=== PATIENT | female | born 1985 | race Caucasian/White ===

== ENCOUNTER 2017-07-22 14:08 | Inpatient (IN) | payer OTHER ==
--- NOTE | 2017-07-22 14:18 | ER Document Report ---
ED General - General Stated Complaint: POSSIBLE SEIZURE Time Seen by Provider: 07/22/17 14:18 Mode of Arrival: Medic Information source: Patient, Parent - HPI Notes: 31-year-old female with a past medical history of chronic alcoholism presents to the emergency room via EMS for seizure that she had at home, witnessed by mother. Patient was sitting in chair, had had a minute long seizure with about 30 minutes being post-ictal. Patient has been seen several times in any of the hospital for detox. Patient drank about 8 next drinks yesterday due to increased stress and she is recently from her and 2 children due to alcoholism. Mother states she is trying a more "homeopathic approach" to detoxing by doing mental cognition and a slow tapering of alcohol over the course of 9 weeks. Patient denies any illicit drug use. Patient has been battling alcoholism for the last 3 years. Presently 1 week ago patient became "blackout drunk" and fell down stairs but she is not sure exactly. Has bruises on her face. Did not get checked out by a medical facility for these injuries. Mother states that patient has not been eating a normal diet due to excessive drinking patient states she does have some paresthesias to her bilateral lower extremities that she has noticed over the last 2 weeks. Patient has been seen at [facility] for all of her detox hospital encounters. Denies any fevers or chills, chest pain,palpitations, shortness of breath, dyspnea, nausea, vomiting, diarrhea, abdominal pain, hematuria,blurred vision, double vision, loss of vision, speech changes, LH, dizziness, syncope, headaches, wheezing, ST , URI, neck pain, weakness, bowel or bladder dysfunction, saddle anesthesia, numbness or tingling in bilateral upper or lower extremities equally, muscle paralysis, weakness in bilateral upper or lower extremities equally or rash. Denies IV drug use. - Related Data Allergies/Adverse Reactions: No Known Allergies Allergy (Verified 07/22/17 16:49) Past Medical History - General Information source: Patient, Parent - Social History Smoking Status: Current Every Day Smoker Frequency of alcohol use: Heavy Family History: Reviewed & Not Pertinent Review of Systems - Review of Systems Constitutional: See HPI EENT: No symptoms reported Cardiovascular: No symptoms reported Respiratory: No symptoms reported Gastrointestinal: No symptoms reported Genitourinary: No symptoms reported Female Genitourinary: No symptoms reported Musculoskeletal: No symptoms reported Skin: No symptoms reported Hematologic/Lymphatic: No symptoms reported Neurological/Psychological: See HPI Physical Exam - Notes Notes: PHYSICAL EXAMINATION: GENERAL: Well-appearing, well-nourished and in no acute distress. HEAD: Atraumatic, normocephalic. various stages of healing ecchymosis around the right orbital. EYES: Pupils equal round and reactive to light, extraocular movements intact, conjunctiva are normal. ENT: Nares patent, oropharynx clear without exudates. Moist mucous membranes. NECK: Normal range of motion, supple without lymphadenopathy LUNGS: Breath sounds clear to auscultation bilaterally and equal. No wheezes rales or rhonchi. HEART: Regular rate and rhythm without murmurs ABDOMEN: Soft, nontender, nondistended abdomen. No guarding, no rebound. No masses appreciated. Female : deferred Musculoskeletal: Normal range of motion, no pitting or edema. No cyanosis. NEUROLOGICAL: Cranial nerves grossly intact. Normal speech, normal gait. Normal sensory, motor exams PSYCH: Normal mood, normal affect. SKIN: Warm, Dry, normal turgor, no rashes or lesions noted. Course - Re-evaluation Re-evalutation: 07/22/17 14:52 31-year-old female who is afebrile, vitals stable and in no distress presents for evaluation of having a seizure that lasted for about 1 minute approximately 45 minutes ago. Patient and mother are working together to try a homeopathic approach to detox from alcohol through a 9 week tapering of her alcohol abuse. Mother states she forgot to give her alcohol today which caused her seizure. Patient is typically seen at [facility] for her detox. Patient did leave AGAINST MEDICAL ADVICE approximately 2 weeks ago because she did not want to "stay there anymore". Patient also has been taking Chantix to try and quit smoking, she has not been successful in this. Patient did drink about 8 cans of "[place] and "Gunner's hard lemonade" which she typically is only drinking 2 cans away. Patient states she found out that her likely does not want a reunite as they are right now and she has 2 small children that stay with her . Patient was postictal for approximately 30 minutes after initial seizure at mother's house. She was sitting in a recliner, was witnessed by mother and she did not injure herself. pt with tonic clonic seizure at 1445, lasted 45 seconds, 2 mg of ativan given, witnessed by this provider. CBC negative for leukocytosis or anemia, renal dysfunction, mag 1.1, mag riders given, potassium of 3.1, potassium riders given. Elevated AST and ALT this is likely due to chronic alcoholism however we will check hepatitis panel. CT head, facial bones negative for any acute findings. Chest x-ray negative for any acute findings. EKG for any acute STEMI. CHARLEEN Gallo, consulted regarding pertinent findings, will admit patient for withdrawal as well as grand mal seizures from withdrawing to medical floor with telemetry. - Laboratory Result Diagrams: 07/22/17 13:22 07/22/17 13:22 Laboratory results interpreted by me: 07/22/17 07/22/17 07/22/17 13:22 13:22 13:22 WBC 3.6 L Hct 35.6 L RDW 14.8 H Plt Count 77 L Sodium 132.8 L Potassium 3.1 L Chloride 89 L Creatinine 0.46 L Magnesium 1.1 L* AST 188 H ALT 87 H Creatine Kinase 1255 H CK-MB (CK-2) Urine Protein Urine Blood Urine Nitrite Urine Urobilinogen Ur Leukocyte Esterase 07/22/17 07/22/17 13:22 15:50 WBC Hct RDW Plt Count Sodium Potassium Chloride Creatinine Magnesium AST ALT Creatine Kinase CK-MB (CK-2) 4.87 H Urine Protein 30 H Urine Blood SMALL H Urine Nitrite POSITIVE H Urine Urobilinogen 4.0 H Ur Leukocyte Esterase LARGE H - EKG Interpretation by Me EKG shows normal: Sinus rhythm Rate: Normal - hr 98 Rhythm: NSR When compared to previous EKG there are: Previous EKG unavailable - Nonspecific ST segment elevations, Other Discharge - Discharge Clinical Impression: Grand mal seizure, Hypomagnesemia, Hypokalemia Withdrawal symptoms, alcohol Qualifiers: Complication of substance-induced condition: with unspecified complication Qualified Code(s): F10.239 - Alcohol dependence with withdrawal, unspecified Condition: Good Disposition: ADMITTED INPATIENT Admitting Provider: Hospitalist - Katelyn Abdullahi Unit Admitted: Telemetry
[2017-07-22 14:31] LABS: ABSOLUTE LYMPHOCYTES (AUTO) 0.7 10^3/uL (0.5-4.7); ABSOLUTE MONOCYTES (AUTO) 0.3 10^3/uL (0.1-1.4); ABSOLUTE NEUT (AUTO) 2.6 10^3/uL (1.7-8.2); BASOPHILS % (AUTO) 0.8 % (0-2); EOSINOPHILS % (AUTO) 1.3 % (0-6); HEMATOCRIT 35.6 % (36.0-47.0); HEMOGLOBIN 12.3 g/dL (12.0-15.5); LYMPHOCYTES % (AUTO) 18.5 % (13-45); MEAN CORPUSCULAR HEMOGLOBIN 32.3 pg (27.0-33.4); MEAN CORPUSCULAR HGB CONC 34.6 g/dL (32.0-36.0); MEAN CORPUSCULAR VOLUME 94 fl (80-97); MONOCYTES % (AUTO) 7.3 % (3-13); RED BLOOD COUNT 3.81 10^6/uL (3.72-5.28); RED CELL DISTRIBUTION WIDTH 14.8 % (11.5-14.0); SEGMENTED NEUTROPHILS % (AUTO) 72.1 % (42-78); TOTAL CELLS COUNTED % (AUTO) 100 %; WHITE BLOOD COUNT 3.6 10^3/uL (4.0-10.5)
[2017-07-22] MEDS ORDERED: LORAZEPAM INJ 2 MG/1 ML VIAL ONE (14:44)
[2017-07-22] MEDS ORDERED: LORAZEPAM INJ 2 MG/1 ML VIAL IV ONE (14:50)
[2017-07-22] MEDS ORDERED: THIAMINE HCL 100 MG, FOLIC ACID 1 MG in NORMAL SALINE 250 ML IV ONE (14:51)
[2017-07-22] MEDS ORDERED: NORMAL SALINE 1000 ML 1,000 ML IV PRN (14:51)
[2017-07-22 15:08] LABS: ALANINE AMINOTRANSFERASE 87 U/L (9-52); ALBUMIN 4.2 g/dL (3.5-5.0); ALKALINE PHOSPHATASE 87 U/L (38-126); ANION GAP 18 (5-19); ASPARTATE AMINO TRANSFERASE 188 U/L (14-36); BILIRUBIN,DIRECT 0.4 mg/dL (0.0-0.4); BILIRUBIN,TOTAL 0.8 mg/dL (0.2-1.3); BLOOD UREA NITROGEN 7 mg/dL (7-20); CALCIUM 9.4 mg/dL (8.4-10.2); CARBON DIOXIDE 26 mmol/L (22-30); CHLORIDE 89 mmol/L (98-107); GLUCOSE 80 mg/dL (75-110); POTASSIUM 3.1 mmol/L (3.6-5.0); SODIUM 132.8 mmol/L (137-145)
[2017-07-22 15:12] LABS: PLATELET COUNT 77 10^3/uL (150-450)
[2017-07-22 15:16] LABS: ALCOHOL < 10 mg/dL (NONE DETECTED)
[2017-07-22 15:33] LABS: CREATINE KINASE MB 4.87 ng/mL (<4.55)
[2017-07-22 15:37] LABS: TROPONIN I < 0.012 ng/mL
[2017-07-22] MEDS ORDERED: LEVETIRACETAM 1500 MG/NACL-ISO 1,500 MG/100 ML RTUPB IV ONE (15:50)
[2017-07-22 16:24] LABS: AMORPHOUS SEDIMENT,URINE TRACE /HPF; APPEARANCE,URINE CLOUDY; BILIRUBIN,URINE NEGATIVE (NEGATIVE); COLOR,URINE AMBER; GLUCOSE, URINE NEGATIVE (NEGATIVE); KETONES,URINE NEGATIVE (NEGATIVE); LEUKOCYTE ESTERASE,URINE LARGE (NEGATIVE); NITRITE,URINE POSITIVE (NEGATIVE); PROTEIN,URINE 30 mg/dL (NEGATIVE); URINE SPECIFIC GRAVITY 1.012
--- NOTE | 2017-07-22 16:27 | RADIOLOGY REPORT (SQ) ---
EXAM DESCRIPTION: CT HEAD WITHOUT COMPLETED DATE/TIME: 07/22/2017 4:09 pm REASON FOR STUDY: seizures, head trauma x 1 week ago COMPARISON: None. TECHNIQUE: Axial images acquired through the brain without intravenous contrast. Images reviewed wi th bone, brain and subdural windows. Additional sagittal and coronal reconstructions were generated. Images stored on PACS. All CT scanners at this facility use dose modulation, iterative reconstruction, and/or weight based d osing when appropriate to reduce radiation dose to as low as reasonably achievable (ALARA). [facility]: Dose Right [facility]: CareDose [facility]: Dose Right [facility]: Teradose 4D [facility]: Smart MobilePro RADIATION DOSE: CT Rad equipment meets quality standard of care and radiation dose reduction techniq ues were employed. CTDIvol: 53.2 mGy. DLP: 1017 mGy-cm. mGy. LIMITATIONS: None. FINDINGS: VENTRICLES: Normal size and contour. CEREBRUM: No masses. No hemorrhage. No midline shift. No evidence for acute infarction. Normal gra y/white matter differentiation. No areas of low density in the white matter. CEREBELLUM: No masses. No hemorrhage. No alteration of density. No evidence for acute infarction. EXTRAAXIAL SPACES: No fluid collections. No masses. ORBITS AND GLOBE: No intra- or extraconal masses. Normal contour of globe without masses. CALVARIUM: No fracture. PARANASAL SINUSES: No fluid or mucosal thickening. SOFT TISSUES: No mass or hematoma. OTHER: No other significant finding. IMPRESSION: NORMAL BRAIN CT WITHOUT CONTRAST. EVIDENCE OF ACUTE STROKE: NO. COMMENT: Quality ID # 436: Final reports with documentation of one or more dose reduction techniques (e.g., Automated exposure control, adjustment of the mA and/or kV according to patient size, use of iterative reconstruction technique) TECHNICAL DOCUMENTATION: JOB ID: [id number] [employer]- All Rights Reserved Reading location - IP/workstation name: [email or web address]
--- NOTE | 2017-07-22 16:33 | RADIOLOGY REPORT (SQ) ---
EXAM DESCRIPTION: CHEST SINGLE VIEW COMPLETED DATE/TIME: 07/22/2017 4:13 pm REASON FOR STUDY: seizures COMPARISON: None. EXAM PARAMETERS: NUMBER OF VIEWS: One view. TECHNIQUE: Single frontal radiographic view of the chest acquired. RADIATION DOSE: NA LIMITATIONS: None. FINDINGS: LUNGS AND PLEURA: No opacities, masses or pneumothorax. No pleural effusion. MEDIASTINUM AND HILAR STRUCTURES: No masses. Contour normal. HEART AND VASCULAR STRUCTURES: Heart normal in size. Normal vasculature. BONES: No acute findings. HARDWARE: None in the chest. OTHER: No other significant finding. IMPRESSION: NO ACUTE RADIOGRAPHIC FINDING IN THE CHEST. TECHNICAL DOCUMENTATION: JOB ID: [id number] [employer]- All Rights Reserved Reading location - IP/workstation name: [email or web address]
[2017-07-22 16:37] LABS: URINE AMPHETAMINES SCREEN NEGATIVE; URINE BARBITURATES SCREEN NEGATIVE; URINE BENZODIAZEPINES SCREEN UNCONFIRMED POSITIVE; URINE COCAINE SCREEN NEGATIVE; URINE MARIJUANA (THC) SCREEN NEGATIVE; URINE METHADONE SCREEN NEGATIVE; URINE PHENCYCLIDINE SCREEN NEGATIVE
--- NOTE | 2017-07-22 16:40 | RADIOLOGY REPORT (SQ) ---
EXAM DESCRIPTION: CT FACIAL AREA WITHOUT COMPLETED DATE/TIME: 07/22/2017 4:09 pm REASON FOR STUDY: fell when drunk x 1 week ago, multiple seizures COMPARISON: None. TECHNIQUE: Noncontrasted images through the facial bones and orbits windowed for bone and soft tissu e. Additional coronal and sagittal reconstructed images reviewed. All images stored on PACS. All CT scanners at this facility use dose modulation, iterative reconstruction, and/or weight based d osing when appropriate to reduce radiation dose to as low as reasonably achievable (ALARA). [facility]: Dose Right [facility]: CareDose [facility]: Dose Right [facility]: Teradose 4D [facility]: Smart Technologies RADIATION DOSE: CT Rad equipment meets quality standard of care and radiation dose reduction techniq ues were employed. CTDIvol: 30.4 mGy. DLP: 540 mGy-cm. mGy. LIMITATIONS: None. FINDINGS: FACIAL BONES: No fracture or bone lesion. ORBITS: Intact. No fracture. Symmetric intact globes and retroorbital soft tissues. PARANASAL SINUSES: Clear. No significant mucosal thickening, mass or fluid. No nasal polyps. Maxill rajwinder sinus outlets are patent. SOFT TISSUES: No mass or edema. INFERIOR BRAIN: Limited view. No acute findings. OTHER: No other significant finding. IMPRESSION: NO ACUTE FINDINGS. TECHNICAL DOCUMENTATION: JOB ID: [id number] Quality ID # [id number]: Final reports with documentation of one or more dose reduction techniques (e.g., Au tomated exposure control, adjustment of the mA and/or kV according to patient size, use of iterative reconstruction technique) 2010 [employer]- All Rights Reserved Reading location - IP/workstation name: [email or web address]
[2017-07-22] MEDS: MAGNESIUM SULFATE/D5W 1 GM/100 ML RTUPB IV SCH ×2 (17:08→22:31)
[2017-07-22] MEDS ORDERED: ONDANSETRON HCL INJ/PF 4 MG/2 ML SDV IV PRN (17:23)
[2017-07-22] MEDS ORDERED: ONDANSETRON 4 MG TAB.RAPDIS PO PRN (17:23)
--- NOTE | 2017-07-22 17:54 | PDOC H&P ---
History of Present Illness Admission Date/PCP: 07/22/17 16:57 Primary CARE physician: Clary singleton [facility] History of Present Illness: NADINE GEORGE is a 31 year old female who presented to the emergency room after having a seizure at home. She has a past medical history significant for alcohol abuse. She has tried to stop drinking before but always goes through alcohol withdrawal. She has never been completely detoxed. She was hospitalized last week at [facility] and was started on an alcohol protocol with Librium. She checked herself out of the hospital AMA 2 days later. The patient is enrolled in an outpatient program that slowly weaned to off of alcohol over a 12 week. She is at week 3 of the program and still is allowed to drink. She states that yesterday she drank quite heavily and was still drunk this morning when she got up. When she began to sober up she suffered a seizure and was brought to the emergency room for further evaluation. Upon arrival in the urgency room she had 2 additional seizures. She has been loaded with Keppra and has received IV Ativan. Past Medical History Cardiac Medical History: Reports: None Pulmonary Medical History: Reports: None EENT Medical History: Reports: None Neurological Medical History: Reports: None Endocrine Medical History: Reports: None Renal/ Medical History: Reports: None Malignancy Medical History: Reports: None GI Medical History: Reports: None Musculoskeltal Medical History: Reports: None Skin Medical History: Reports: None Psychiatric Medical History: Reports: Alcohol Dependency, Depression, Tobacco Dependency Traumatic Medical History: Reports: None Hematology: Reports: None Infectious Medical History: Reports: None Past Surgical History Past Surgical History: Reports: None Social History Information Source: Patient, Parent Lives with: Parents Smoking Status: Current Every Day Smoker Frequency of Alcohol Use: Heavy Last Alcohol Use: 07/22/17 Hx Recreational Drug Use: No Drugs: None Past Social History Note: The patient has 2 young sons ages 8 and age 4. They do not reside with her. They live with her father. - Advance Directive Resuscitation Status: Full Code Family History Family History: Other - Have a history of alcohol abuse on both sides of her family Parental Family History Reviewed: Yes Children Family History Reviewed: Yes Sibling(s) Family History Reviewed.: Yes Medication/Allergy Allergies/Adverse Reactions: No Known Allergies Allergy (Verified 07/22/17 16:49) Review of Systems Constitutional: PRESENT: headache(s) Eyes: ABSENT: visual disturbances Ears: ABSENT: hearing changes Nose, Mouth, and Throat: PRESENT: headache(s) Cardiovascular: PRESENT: palpitations. ABSENT: chest pain, dyspnea on exertion , edema, orthropnea Respiratory: ABSENT: cough, hemoptysis Gastrointestinal: PRESENT: nausea. ABSENT: abdominal pain, constipation, diarrhea, hematemesis, hematochezia, vomiting Genitourinary: PRESENT: other - Frequently incontinent due to intoxication Musculoskeletal: PRESENT: other - Patient has numbness and tingling in both of her lower extremities as well as a constant aching pain. Her feet have been numb and she reports difficulty walking due to this. Integumentary: PRESENT: other - Multiple ecchymosis over her right eye and multiple bruises all over her body. Neurological: PRESENT: convulsions, frequent falls, lack of coordination, numbness, paresthesias, tremor(s). ABSENT: abnormal movements, abnormal speech , confusion, focal weakness Psychiatric: PRESENT: depression. ABSENT: hallucinations, homidical ideation, suicidal ideation Endocrine: ABSENT: cold intolerance, heat intolerance, polydipsia, polyuria Hematologic/Lymphatic: PRESENT: easy bruising Physical Exam General appearance: PRESENT: cooperative, mild distress, well-developed, well- nourished Head exam: PRESENT: atraumatic, normocephalic Eye exam: PRESENT: conjunctiva pink, EOMI, PERRLA. ABSENT: scleral icterus Ear exam: PRESENT: normal external ear exam Mouth exam: PRESENT: moist, tongue midline Neck exam: ABSENT: carotid bruit, JVD, lymphadenopathy, thyromegaly Respiratory exam: PRESENT: clear to auscultation juan diego. ABSENT: rales, rhonchi, wheezes Cardiovascular exam: PRESENT: tachycardia. ABSENT: diastolic murmur, rubs, systolic murmur Pulses: PRESENT: normal dorsalis pedis pul Vascular exam: PRESENT: normal capillary refill GI/Abdominal exam: PRESENT: normal bowel sounds, soft. ABSENT: distended, guarding, mass, organolmegaly, rebound, tenderness Rectal exam: PRESENT: deferred Extremities exam: PRESENT: tenderness Musculoskeletal exam: PRESENT: tenderness - She is exquisitely tender to palpation in both of her feet, bilateral AND bilateral thighs Neurological exam: PRESENT: alert, awake, oriented to person, oriented to place , oriented to time, oriented to situation, ataxia, CN II-XII grossly intact, other - She has a significant tremor. ABSENT: motor sensory deficit Psychiatric exam: PRESENT: agitated, depressed, flat affect. ABSENT: appropriate affect Skin exam: PRESENT: dry, intact, warm, other - Multiple ecchymosis. ABSENT: cyanosis, rash Results Impressions: Head CT 07/22/17 14:49 IMPRESSION: NORMAL BRAIN CT WITHOUT CONTRAST. EVIDENCE OF ACUTE STROKE: NO. Facial Bones CT 07/22/17 14:50 IMPRESSION: NO ACUTE FINDINGS. Chest X-Ray 07/22/17 15:57 IMPRESSION: NO ACUTE RADIOGRAPHIC FINDING IN THE CHEST. Assessment & Plan - Diagnosis (1) Seizure due to alcohol withdrawal Is this a current diagnosis for this admission?: Yes Plan: The patient has had a total of 3 seizures. These have resolved after being loaded with Keppra and receiving 2 doses of IV Ativan. Going to place her on 2 mg of IV Ativan every 4 hours. She will have 2 mg of Ativan available as needed every 2 hours as needed as well. We will place her on seizure precautions and an intermediate level of care and treat her underlying alcohol withdrawal. (2) Alcohol withdrawal Is this a current diagnosis for this admission?: Yes Plan: Continue benzodiazepines as outlined above. I am also going to place her on clonidine. (3) Alcohol abuse, continuous Is this a current diagnosis for this admission?: Yes Plan: The patient has been involved in an alcohol rehab program but is been trying to wean herself off slowly over 12 week. Due to the fact that she is still drinking and only went 3 hours without drinking before she had a seizure I do not believe that she is going to be able to slowly wean herself off alcohol in the home setting. I have discussed this at length with her and her mother. She is quite honest that she would like to quit drinking when she gets out of here but she does not want to have further seizures and is agreeable to stay for now. (4) Urinary tract infection Is this a current diagnosis for this admission?: Yes Plan: We will order a urine culture. She will receive IV Rocephin 1 g daily until culture results are finalized (5) Hyponatremia Is this a current diagnosis for this admission?: Yes Plan: Likely due to her underlying alcohol use. She will have a chemistry panel drawn in the morning (6) Hypokalemia Is this a current diagnosis for this admission?: Yes Plan: She is receiving potassium riders. She will continue IV fluids with potassium as well. We will check a level in the morning. (7) Hypomagnesemia Is this a current diagnosis for this admission?: Yes Plan: This will be repleted today. She will have another level checked in the morning. (8) Elevated transaminase level Is this a current diagnosis for this admission?: Yes Plan: We will obtain an ultrasound of the liver for further evaluation. This is likely due to mild alcoholic hepatitis. (9) Rhabdomyolysis Is this a current diagnosis for this admission?: Yes Plan: She will be started on IV fluid hydration. She will have a CK level drawn in the morning (11) Depression Is this a current diagnosis for this admission?: Yes Plan: When she goes to her underlying alcohol withdrawal this will need to be treated. (12) Tobacco abuse Is this a current diagnosis for this admission?: Yes Plan: She will have a nicotine patch in place. (13) Full code status Is this a current diagnosis for this admission?: Yes - Time Time Spent: 50 to 70 Minutes - Inpatient Certification Medical Necessity: Need Close Monitoring Due to Risk of Patient Decompensation, Need For IV Fluids, Need for Neurological Checks, Need for IV Antibiotics, Risk of Complication if Not Cared For in Hospital, Other - The patient will be admitted to the hospital. I fully expect her hospitalization will span greater than 2 midnights. The patient had 3 seizures after only being off of alcohol for 2 or 3 hours this morning. She needs parenteral benzodiazepines, fluids and antibiotics. I expect she will be in the hospital for several days.
[2017-07-22] MEDS ORDERED: CEFTRIAXONE 1 GM/D5W RTU 50 ML IV SCH (18:00)
[2017-07-22 18:06] LABS: PROTHROMBIN TIME 13.7 SEC (11.4-15.4)
[2017-07-22 18:07] LABS: PARTIAL THROMBOPLASTIN TIME 25.5 SEC (23.5-35.8)
[2017-07-22] MEDS: POTASSI CL 20 MEQ/50 ML RIDER 20 MEQ/50 ML RTUPB IV SCH ×2 (18:11→19:44)
[2017-07-22] MEDS: LORAZEPAM INJ 2 MG/1 ML VIAL IV SCH (18:32)
--- NOTE | 2017-07-22 18:58 | RADIOLOGY REPORT (SQ) ---
EXAM DESCRIPTION: VENOUS BILATERAL LOWER COMPLETED DATE/TIME: 07/22/2017 6:50 pm REASON FOR STUDY: leg pain COMPARISON: None. TECHNIQUE: Dynamic and static barfield scale and color images acquired of both lower extremity venous sy stems. Selected spectral images acquired with additional compression and augmentation maneuvers. Imag es stored on PACS. LIMITATIONS: None. FINDINGS: RIGHT LEG COMMON FEMORAL AND FEMORAL: Normal phasicity, compression and augmentation. No visualized echogenic m aterial on barfield scale. No defects on color images. POPLITEAL: Normal compression and augmentation. No visualized echogenic material on barfield scale. No de fects on color images. CALF VESSELS: Normal compression and augmentation. No visualized echogenic material on barfield scale. No defects on color image. GSV AND SSV: Normal compression. No visualized echogenic material on barfield scale. No defects on color images. ANY DEEP VENOUS INSUFFICIENCY: Not evaluated. ANY EVIDENCE OF POPLITEAL CYST: No. OTHER: No other significant finding. LEFT LEG COMMON FEMORAL AND FEMORAL: Normal phasicity, compression and augmentation. No visualized echogenic m aterial on barfield scale. No defects on color images. POPLITEAL: Normal compression and augmentation. No visualized echogenic material on barfield scale. No de fects on color images. CALF VESSELS: Normal compression and augmentation. No visualized echogenic material on barfield scale. No defects on color images. GSV AND SSV: Normal compression. No visualized echogenic material on barfield scale. No defects on color images. ANY DEEP VENOUS INSUFFICIENCY: Not evaluated. ANY EVIDENCE POPLITEAL CYST: No. OTHER: No other significant finding. IMPRESSION: NO EVIDENCE DVT OR SVT IN EITHER LEG. TECHNICAL DOCUMENTATION: JOB ID: [id number] [employer]- All Rights Reserved Reading location - IP/workstation name: [email or web address]
[2017-07-22] MEDS ORDERED: NICOTINE 21 MG/24 HR PATCH.TD24 TD ONE (19:00)
--- NOTE | 2017-07-22 20:38 | EKG REPORT ---
SEVERITY:- NORMAL ECG - SINUS RHYTHM : Confirmed by: Tino Jama MD 22-Jul-2017 20:37:28
[2017-07-22] MEDS: LORAZEPAM INJ 2 MG/1 ML VIAL IV PRN ×2 (22:30→22:37)
[2017-07-22] MEDS: POTASSI CL 20 MEQ/NS 1L 1,000 ML IV PRN (22:33)
[2017-07-22] MEDS ORDERED: CEFTRIAXONE SODIUM 1,000 MG in DEXTROSE 5%-WATER 50 ML IV ONE (23:45)
[2017-07-23] MEDS: LORAZEPAM INJ 2 MG/1 ML VIAL IV PRN (00:16)
[2017-07-23] MEDS: LORAZEPAM INJ 2 MG/1 ML VIAL IV SCH ×4 (00:16→18:02)
[2017-07-23] MEDS ORDERED: LORAZEPAM INJ 2 MG/1 ML VIAL IV PRN (00:30)
[2017-07-23] MEDS: MAGNESIUM SULFATE/D5W 1 GM/100 ML RTUPB IV SCH ×2 (03:49→10:50)
[2017-07-23] MEDS: LANSOPRAZOLE 15 MG TAB.RAP.DR PO SCH (05:46)
[2017-07-23 06:53] LABS: PROTHROMBIN TIME 13.7 SEC (11.4-15.4)
[2017-07-23 07:13] LABS: ABSOLUTE EOSINOPHILS # (AUTO) 0.1 10^3/uL (0.0-0.6); ABSOLUTE LYMPHOCYTES (AUTO) 0.8 10^3/uL (0.5-4.7); ABSOLUTE MONOCYTES (AUTO) 0.3 10^3/uL (0.1-1.4); ABSOLUTE NEUT (AUTO) 2.4 10^3/uL (1.7-8.2); BASOPHILS % (AUTO) 0.8 % (0-2); EOSINOPHILS % (AUTO) 2.8 % (0-6); HEMOGLOBIN 11.7 g/dL (12.0-15.5); LYMPHOCYTES % (AUTO) 21.1 % (13-45); MEAN CORPUSCULAR HEMOGLOBIN 32.2 pg (27.0-33.4); MEAN CORPUSCULAR HGB CONC 34.4 g/dL (32.0-36.0); MEAN CORPUSCULAR VOLUME 94 fl (80-97); MONOCYTES % (AUTO) 9.6 % (3-13); RED BLOOD COUNT 3.63 10^6/uL (3.72-5.28); RED CELL DISTRIBUTION WIDTH 14.3 % (11.5-14.0); SEGMENTED NEUTROPHILS % (AUTO) 65.7 % (42-78); TOTAL CELLS COUNTED % (AUTO) 100 %; WHITE BLOOD COUNT 3.6 10^3/uL (4.0-10.5)
[2017-07-23 07:18] LABS: ALANINE AMINOTRANSFERASE 76 U/L (9-52); ALBUMIN 3.4 g/dL (3.5-5.0); ALKALINE PHOSPHATASE 84 U/L (38-126); ANION GAP 9 (5-19); ASPARTATE AMINO TRANSFERASE 142 U/L (14-36); BILIRUBIN,DIRECT 0.3 mg/dL (0.0-0.4); BILIRUBIN,TOTAL 0.9 mg/dL (0.2-1.3); BLOOD UREA NITROGEN 5 mg/dL (7-20); CALCIUM 8.6 mg/dL (8.4-10.2); CARBON DIOXIDE 23 mmol/L (22-30); CHLORIDE 104 mmol/L (98-107); CREATINE KINASE 765 U/L (30-135); GLUCOSE 89 mg/dL (75-110); PHOSPHORUS 2.8 mg/dL (2.5-4.5); POTASSIUM 3.5 mmol/L (3.6-5.0); SODIUM 135.8 mmol/L (137-145); TOTAL PROTEIN 6.2 g/dL (6.3-8.2)
--- NOTE | 2017-07-23 07:25 | RADIOLOGY REPORT (SQ) ---
EXAM DESCRIPTION: US ABDOMEN LIMITED CLINICAL HISTORY: 31 years Female, elevated LFT Comparison: None. LIMITATIONS: None. FINDINGS: Gallbladder sludge, negative sonographic Gates's test, mild nonspecific heterogeneous hepatic echotexture, a 0.2-cm diameter common bile duct, no intrahepatic ductal dilation, 11-cm right kidney, pancreas, visualized vasculature/abdominal aorta, and no significant ascites appear otherwise unremarkable. IMPRESSION: No acute findings. Gallbladder sludge.
[2017-07-23 08:02] LABS: PLATELET COUNT 50 10^3/uL (150-450)
[2017-07-23 08:42] LABS: HEPATITIS A AB IGM Negative (Negative); HEPATITIS B CORE AB IGM Negative (Negative); HEPATITS B SURFACE ANTIGEN Negative (Negative)
[2017-07-23] MEDS: NICOTINE 21 MG/24 HR PATCH.TD24 TD SCH (10:50)
[2017-07-23 11:31] LABS: HEPATITIS C VIRUS ANTIBODY <0.1 s/co ratio (0.0-0.9)
[2017-07-23] MEDS: POTASSI CL 20 MEQ/NS 1L 1,000 ML IV PRN (12:00)
--- NOTE | 2017-07-23 18:44 | PDOC PROGRESS REPORT ---
Subjective Progress Note for:: 07/23/17 Subjective:: She does not have much of a tremor. We discussed cutting back her lorazepam and she is in agreement. She has made a firm decision to try to quit drinking altogether she was commended for this. I did spend quite some time discussing the plan of care with her and all of her questions were answered. Overall she denies fever chills. No chest pain or heart palpitations. She has had no nausea today. She states her tremor is better. No abdominal pain. No urinary complaints. She still is having pain in both of her lower extremities however this is improved since yesterday. Reason For Visit: ALCOHOLIC SEIZURES Physical Exam Vital Signs: Temp Pulse Resp BP Pulse Ox 98.1 F 90 18 114/78 100 07/23/17 16:16 07/23/17 16:16 07/23/17 16:16 07/23/17 16:16 07/23/17 16:16 Intake & Output 07/22/17 07/23/17 07/24/17 06:59 06:59 06:59 Intake Total 1999 3854 Balance 1999 3854 Weight 53.5 kg General appearance: PRESENT: no acute distress, well-developed, well-nourished, other - Multiple ecchymosis over body. Head exam: PRESENT: normocephalic, other - Ecchymosis over is improving Eye exam: PRESENT: other - Ecchymosis of her eyes improving Ear exam: PRESENT: normal external ear exam Mouth exam: PRESENT: moist, tongue midline Neck exam: ABSENT: carotid bruit, JVD, lymphadenopathy, thyromegaly Respiratory exam: PRESENT: clear to auscultation juan diego. ABSENT: rales, rhonchi, wheezes Cardiovascular exam: PRESENT: RRR. ABSENT: diastolic murmur, rubs, systolic murmur GI/Abdominal exam: PRESENT: normal bowel sounds, soft. ABSENT: distended, guarding, mass, organolmegaly, rebound, tenderness Rectal exam: PRESENT: deferred Extremities exam: PRESENT: full ROM. ABSENT: calf tenderness, clubbing, pedal edema Musculoskeletal exam: PRESENT: ambulatory Neurological exam: PRESENT: alert, awake, oriented to person, oriented to place , oriented to time, oriented to situation, CN II-XII grossly intact. ABSENT: motor sensory deficit Psychiatric exam: PRESENT: appropriate affect, normal mood. ABSENT: homicidal ideation, suicidal ideation Skin exam: PRESENT: dry, intact, warm. ABSENT: cyanosis, rash Results Laboratory Results: 07/23/17 06:24 07/23/17 06:24 07/23/17 07/23/17 07/23/17 06:24 06:24 06:24 WBC 3.6 L RBC 3.63 L Hgb 11.7 L Hct 34.0 L MCV 94 MCH 32.2 MCHC 34.4 RDW 14.3 H Plt Count 50 L Seg Neutrophils % 65.7 Lymphocytes % 21.1 Monocytes % 9.6 Eosinophils % 2.8 Basophils % 0.8 Absolute Neutrophils 2.4 Absolute Lymphocytes 0.8 Absolute Monocytes 0.3 Absolute Eosinophils 0.1 Absolute Basophils 0.0 Sodium 135.8 L Potassium 3.5 L Chloride 104 Carbon Dioxide 23 Anion Gap 9 BUN 5 L Creatinine 0.45 L Est GFR ( Amer) > 60 Est GFR (Non-Af Amer) > 60 Glucose 89 Calcium 8.6 Phosphorus 2.8 Magnesium 2.2 D Total Bilirubin 0.9 AST 142 H ALT 76 H Alkaline Phosphatase 84 Ammonia < 8.7 L Total Protein 6.2 L Albumin 3.4 L TSH 07/23/17 06:24 WBC RBC Hgb Hct MCV MCH MCHC RDW Plt Count Seg Neutrophils % Lymphocytes % Monocytes % Eosinophils % Basophils % Absolute Neutrophils Absolute Lymphocytes Absolute Monocytes Absolute Eosinophils Absolute Basophils Sodium Potassium Chloride Carbon Dioxide Anion Gap BUN Creatinine Est GFR ( Amer) Est GFR (Non-Af Amer) Glucose Calcium Phosphorus Magnesium Total Bilirubin AST ALT Alkaline Phosphatase Ammonia Total Protein Albumin TSH 3.45 07/23/17 06:24 Creatine Kinase 765 H Impressions: Venous Doppler Study 07/22/17 00:00 IMPRESSION: NO EVIDENCE DVT OR SVT IN EITHER LEG. Head CT 07/22/17 14:49 IMPRESSION: NORMAL BRAIN CT WITHOUT CONTRAST. EVIDENCE OF ACUTE STROKE: NO. Facial Bones CT 07/22/17 14:50 IMPRESSION: NO ACUTE FINDINGS. Chest X-Ray 07/22/17 15:57 IMPRESSION: NO ACUTE RADIOGRAPHIC FINDING IN THE CHEST. Abdomen Ultrasound 07/23/17 00:00 IMPRESSION: No acute findings. Gallbladder sludge. Assessment & Plan - Diagnosis (1) Seizure due to alcohol withdrawal Is this a current diagnosis for this admission?: Yes Plan: The patient has had a total of 3 seizures. These have resolved after being loaded with Keppra and receiving 2 doses of IV Ativan. She received scheduled Ativan 2 mg every 6 hours overnight. Her tremor is much improved today. She looks much better and is not feeling agitated. We will change her over to oral schedule Ativan every 8 hours. She will continue to have IV Ativan available. (2) Alcohol withdrawal Is this a current diagnosis for this admission?: Yes Plan: Continue benzodiazepines as outlined above. Continue clonidine. (3) Alcohol abuse, continuous Is this a current diagnosis for this admission?: Yes Plan: The patient has been involved in an alcohol rehab program but is been trying to wean herself off slowly over 12 week. Due to the fact that she is still drinking and only went 3 hours without drinking before she had a seizure I do not believe that she is going to be able to slowly wean herself off alcohol in the home setting. She now seems quite motivated to stop drinking. (4) Urinary tract infection Is this a current diagnosis for this admission?: Yes Plan: She has gram-negative rods growing in her urine. Continue IV Rocephin. This is day #2 of treatment. (5) Hyponatremia Is this a current diagnosis for this admission?: Yes Plan: Likely due to her underlying alcohol use. Improved. (6) Hypokalemia Is this a current diagnosis for this admission?: Yes Plan: She was repleted yesterday. Her level is still somewhat low. We will give her 40 mEq of potassium today. (7) Hypomagnesemia Is this a current diagnosis for this admission?: Yes Plan: This will be repleted today. She will have another level checked in the morning. (8) Elevated transaminase level Is this a current diagnosis for this admission?: Yes Plan: Ultrasound of the liver was unremarkable. She did have some gallbladder sludge. This is likely due to mild alcoholic hepatitis. Liver function test are improving (9) Rhabdomyolysis Is this a current diagnosis for this admission?: Yes Plan: Improving (10) Bilateral lower extremity pain Is this a current diagnosis for this admission?: Yes Plan: We will get an MRI of her lumbar spine (11) Depression Is this a current diagnosis for this admission?: Yes Plan: When she goes to her underlying alcohol withdrawal this will need to be treated. (12) Tobacco abuse Is this a current diagnosis for this admission?: Yes Plan: She will continue nicotine patch (13) Full code status Is this a current diagnosis for this admission?: Yes - Time Time Spent with patient: 25-34 minutes - Inpatient Certification Medical Necessity: Other - Inpatient hospitalization remains necessary. Overall the patient is slowly improving. We are going to change her over to by mouth Ativan today. Timing of disposition will be determined by her clinical course. She would like to detox here in the hospital.
[2017-07-23] MEDS ORDERED: POTASSIUM CHLORIDE 10 MEQ TABLET.SA PO ONE (19:15)
[2017-07-23] MEDS: LORAZEPAM 1 MG TABLET PO SCH (21:48)
[2017-07-23] MEDS: CEFTRIAXONE SODIUM 1,000 MG in DEXTROSE 5%-WATER 50 ML IV SCH (21:49)
[2017-07-24] MEDS: LANSOPRAZOLE 15 MG TAB.RAP.DR PO SCH (05:31)
[2017-07-24] MEDS: LORAZEPAM 1 MG TABLET PO SCH ×2 (05:31→17:27)
[2017-07-24 07:01] LABS: INTERNATIONAL RATION (INR) 0.95; PROTHROMBIN TIME 13.2 SEC (11.4-15.4)
[2017-07-24 07:19] LABS: ABSOLUTE BASOPHILS # (AUTO) 0.1 10^3/uL (0.0-0.2); ABSOLUTE EOSINOPHILS # (AUTO) 0.2 10^3/uL (0.0-0.6); ABSOLUTE LYMPHOCYTES (AUTO) 0.9 10^3/uL (0.5-4.7); ABSOLUTE MONOCYTES (AUTO) 0.4 10^3/uL (0.1-1.4); ABSOLUTE NEUT (AUTO) 3.1 10^3/uL (1.7-8.2); ALANINE AMINOTRANSFERASE 91 U/L (9-52); ALBUMIN 4.2 g/dL (3.5-5.0); ALKALINE PHOSPHATASE 88 U/L (38-126); ANION GAP 12 (5-19); ASPARTATE AMINO TRANSFERASE 159 U/L (14-36); BASOPHILS % (AUTO) 1.1 % (0-2); BILIRUBIN,DIRECT 0.3 mg/dL (0.0-0.4); BILIRUBIN,TOTAL 0.9 mg/dL (0.2-1.3); BLOOD UREA NITROGEN 10 mg/dL (7-20); CALCIUM 9.7 mg/dL (8.4-10.2); CARBON DIOXIDE 24 mmol/L (22-30); CHLORIDE 101 mmol/L (98-107); EOSINOPHILS % (AUTO) 4.1 % (0-6); GLUCOSE 92 mg/dL (75-110); HEMATOCRIT 36.2 % (36.0-47.0); HEMOGLOBIN 12.2 g/dL (12.0-15.5); LYMPHOCYTES % (AUTO) 19.6 % (13-45); MEAN CORPUSCULAR HGB CONC 33.8 g/dL (32.0-36.0); MEAN CORPUSCULAR VOLUME 95 fl (80-97); MONOCYTES % (AUTO) 9.3 % (3-13); PHOSPHORUS 3.8 mg/dL (2.5-4.5); POTASSIUM 4.2 mmol/L (3.6-5.0); RED BLOOD COUNT 3.82 10^6/uL (3.72-5.28); RED CELL DISTRIBUTION WIDTH 14.5 % (11.5-14.0); SEGMENTED NEUTROPHILS % (AUTO) 65.9 % (42-78); SODIUM 136.9 mmol/L (137-145); TOTAL CELLS COUNTED % (AUTO) 100 %; TOTAL PROTEIN 7.4 g/dL (6.3-8.2); WHITE BLOOD COUNT 4.8 10^3/uL (4.0-10.5)
[2017-07-24 08:26] LABS: PLATELET COUNT 56 10^3/uL (150-450)
--- NOTE | 2017-07-24 09:48 | RADIOLOGY REPORT (SQ) ---
EXAM DESCRIPTION: MRI LUMBAR SPINE WITHOUT COMPLETED DATE/TIME: 07/24/2017 9:33 am REASON FOR STUDY: lower extremity weakness and numbness post fall COMPARISON: None. TECHNIQUE: Sagittal and Axial imaging includes T1, T2, STIR and gradient echo sequences. Coronal T2/ HASTE imaging. LIMITATIONS: None. FINDINGS: VISUALIZED UPPER ABDOMEN: Limited evaluation. No acute or suspicious findings suggested. SEGMENTATION: There is transitional anatomy. A small disc space is present between S1 and S2. ALIGNMENT: Anatomic. VERTEBRAE: Intact. BONE MARROW: Normal. No marrow replacement or reactive changes. DISC SIGNAL: Normal. No significant abnormal signal or loss of height. POSTERIOR ELEMENTS: Generally intact. No pars defect evident. HARDWARE: None in the spine. CORD AND CONUS: Normal in size and signal intensity. Conus at the L1 level. SOFT TISSUES: No aortic aneurysm seen. No bulky retroperitoneal adenopathy or mass. No paraspinal mas s or fluid. L1-L2: No significant spinal stenosis or exit foraminal stenosis. L2-L3: No significant spinal stenosis or exit foraminal stenosis. L3-L4: No significant spinal stenosis or exit foraminal stenosis. Moderate bilateral facet and ligam ent hypertrophy L4-L5: No significant spinal stenosis or exit foraminal stenosis. Moderate bilateral facet and ligam ent hypertrophy L5-S1: No significant spinal stenosis or exit foraminal stenosis. Moderate bilateral facet hypertrop hy LOWER THORACIC: Incompletely imaged. No stenosis seen. SACRUM: Visualized upper sacrum intact. OTHER: No other significant findings. IMPRESSION: Lower lumbar facet arthropathy. No significant central or foraminal encroachment. TECHNICAL DOCUMENTATION: JOB ID: [id number] [employer]- All Rights Reserved Reading location - IP/workstation name: [facility]
[2017-07-24] MEDS: NICOTINE 21 MG/24 HR PATCH.TD24 TD SCH (11:08)
--- NOTE | 2017-07-24 15:34 | Physician Advisory Note ---
Physician Advisor ProgressNote .: Pursuant to the plan for [facility], I have reviewed the medical record for this patient. Physician Advisor Statement: Please consider documenting, if you agree: 1. "EtOH abuse & dependence" 2. "suspected protein-calorie malnutrition [state mild, mod, or severe] with BMI 20.1, low BUN & Cr, ____[?wt loss, ?appetite loss, ]" [if possible, give specifics on intake, wt loss, loss of SQ fat & muscle mass, diminished hand software lead strength, & clinical importance such as (A) nutritional assessment ordered, (B) modified diet or supplements ordered, (C) additional labs ordered, (D) prolonged wound healing time, (E) delayed infxn clearance] 3. "pancytopenia due to " Thanks! CK
--- NOTE | 2017-07-24 20:05 | PDOC PROGRESS REPORT ---
Subjective Progress Note for:: 07/24/17 Subjective:: NADINE GEORGE is a 31 year old female who presented to the emergency room after having a seizure at home. She has a past medical history significant for alcohol abuse. She has tried to stop drinking before but always goes through alcohol withdrawal. She has never been completely detoxed. She was hospitalized last week at [facility] and was started on an alcohol protocol with Librium. She checked herself out of the hospital AMA 2 days later. The patient is enrolled in an outpatient program that slowly weaned to off of alcohol over a 12 week. She is at week 3 of the program and still is allowed to drink. She states that the day prior to admission she drank quite heavily and was still drunk the next morning when she got up. When she began to sober up she suffered a seizure and was brought to the emergency room for further evaluation. Upon arrival in the urgency room she had 2 additional seizures. She was loaded with Keppra and received IV Ativan. After admission the patient had no further seizures. She was started on IV Ativan that was scheduled. She did respond quite nicely in the next day her tremor was almost totally resolved. She was changed over to p.o. lorazepam at that point. Today when I saw the patient her tremor is totally resolved. She appears to be back to her baseline and her and her mother making plans for further therapy as an outpatient. [place] We discussed stopping all of her Ativan tonight to make sure she is stable. She will only have it available as needed and she is agreeable. If all goes well she can hopefully be discharged home in the morning. Reason For Visit: ALCOHOLIC SEIZURES Physical Exam Vital Signs: Temp Pulse Resp BP Pulse Ox 98.9 F 97 18 131/97 H 100 07/24/17 16:38 07/24/17 16:38 07/24/17 16:38 07/24/17 16:38 07/24/17 16:38 Intake & Output 07/23/17 07/24/17 07/25/17 06:59 06:59 06:59 Intake Total 1999 2469 2905 Balance 1999 5620 1722 Weight 53.5 kg 54.7 kg General appearance: PRESENT: no acute distress, well-developed Head exam: PRESENT: normocephalic. ABSENT: atraumatic - She has ecchymosis over her eye. Improving Eye exam: PRESENT: conjunctiva pink, EOMI, PERRLA. ABSENT: scleral icterus Mouth exam: PRESENT: moist, tongue midline Respiratory exam: PRESENT: clear to auscultation juan diego. ABSENT: rales, rhonchi, wheezes Cardiovascular exam: PRESENT: RRR. ABSENT: diastolic murmur, rubs, systolic murmur GI/Abdominal exam: PRESENT: normal bowel sounds, soft. ABSENT: distended, guarding, mass, organolmegaly, rebound, tenderness Rectal exam: PRESENT: deferred Extremities exam: PRESENT: full ROM. ABSENT: calf tenderness, clubbing, pedal edema Musculoskeletal exam: PRESENT: ambulatory Neurological exam: PRESENT: alert, awake, oriented to person, oriented to place , oriented to time, oriented to situation, CN II-XII grossly intact. ABSENT: motor sensory deficit Psychiatric exam: PRESENT: appropriate affect, normal mood. ABSENT: homicidal ideation, suicidal ideation Skin exam: PRESENT: dry, intact, warm. ABSENT: cyanosis, rash Results Laboratory Results: 07/24/17 06:36 07/24/17 06:36 07/24/17 07/24/17 07/24/17 06:36 06:36 06:36 WBC 4.8 RBC 3.82 Hgb 12.2 Hct 36.2 MCV 95 MCH 32.0 MCHC 33.8 RDW 14.5 H Plt Count 56 L Seg Neutrophils % 65.9 Lymphocytes % 19.6 Monocytes % 9.3 Eosinophils % 4.1 Basophils % 1.1 Absolute Neutrophils 3.1 Absolute Lymphocytes 0.9 Absolute Monocytes 0.4 Absolute Eosinophils 0.2 Absolute Basophils 0.1 Sodium 136.9 L Potassium 4.2 Chloride 101 Carbon Dioxide 24 Anion Gap 12 BUN 10 Creatinine 0.56 Est GFR ( Amer) > 60 Est GFR (Non-Af Amer) > 60 Glucose 92 Calcium 9.7 Phosphorus 3.8 Magnesium 1.8 Total Bilirubin 0.9 AST 159 H ALT 91 H Alkaline Phosphatase 88 Ammonia < 8.7 L Total Protein 7.4 Albumin 4.2 07/23/17 06:24 Creatine Kinase 765 H Impressions: Venous Doppler Study 07/22/17 00:00 IMPRESSION: NO EVIDENCE DVT OR SVT IN EITHER LEG. Head CT 07/22/17 14:49 IMPRESSION: NORMAL BRAIN CT WITHOUT CONTRAST. EVIDENCE OF ACUTE STROKE: NO. Facial Bones CT 07/22/17 14:50 IMPRESSION: NO ACUTE FINDINGS. Chest X-Ray 07/22/17 15:57 IMPRESSION: NO ACUTE RADIOGRAPHIC FINDING IN THE CHEST. Abdomen Ultrasound 07/23/17 00:00 IMPRESSION: No acute findings. Gallbladder sludge. Lumbar Spine MRI 07/24/17 00:00 IMPRESSION: Lower lumbar facet arthropathy. No significant central or foraminal encroachment. Assessment & Plan - Diagnosis (1) Seizure due to alcohol withdrawal Is this a current diagnosis for this admission?: Yes Plan: The patient has had a total of 3 seizures. These have resolved after being loaded with Keppra and receiving 2 doses of IV Ativan. She was transitioned to oral Ativan yesterday and has done well. We are going to stop it altogether today and see how she does (2) Alcohol withdrawal Is this a current diagnosis for this admission?: Yes Plan: Resolved. Stop her Ativan and see how she does overnight. (3) Alcohol abuse, continuous Is this a current diagnosis for this admission?: Yes Plan: The patient has continuous alcohol abuse as well as dependence. The patient has been involved in an alcohol rehab program but is been trying to wean herself off slowly over 12 week. Due to the fact that she is still drinking and only went 3 hours without drinking before she had a seizure I do not believe that she is going to be able to slowly wean herself off alcohol in the home setting. She now seems quite motivated to stop drinking. (4) Urinary tract infection Is this a current diagnosis for this admission?: Yes Plan: She has gram-negative rods growing in her urine. Continue IV Rocephin. This is day #2 of treatment. (5) Hyponatremia Is this a current diagnosis for this admission?: Yes Plan: Likely due to her underlying alcohol use. Improved. (6) Hypokalemia Is this a current diagnosis for this admission?: Yes Plan: Repleted and resolved. (7) Hypomagnesemia Is this a current diagnosis for this admission?: Yes Plan: Her level has normalized. We will start her on p.o. magnesium supplementation. (8) Elevated transaminase level Is this a current diagnosis for this admission?: Yes Plan: Ultrasound of the liver was unremarkable. She did have some gallbladder sludge. This is likely due to mild alcoholic hepatitis. Liver function test are improving (9) Rhabdomyolysis Is this a current diagnosis for this admission?: Yes Plan: Improving (10) Bilateral lower extremity pain Is this a current diagnosis for this admission?: Yes Plan: MRI revealed some degenerative changes but nothing acute. The issues with her lower extremities could be due to all of her electrolyte abnormalities and the states she was in when she came into the hospital. Her bilateral lower extremity pain is almost totally resolved. (11) Depression Is this a current diagnosis for this admission?: Yes Plan: She has an appointment with psychiatry tomorrow morning. Hopefully she can make that appointment be treated. (12) Tobacco abuse Is this a current diagnosis for this admission?: Yes Plan: She will continue nicotine patch (13) Full code status Is this a current diagnosis for this admission?: Yes - Time Time Spent with patient: 25-34 minutes - Inpatient Certification Medical Necessity: Other - Inpatient hospitalization remains necessary. If the patient has no seizure activity or evidence of alcohol withdrawal overnight she can be discharged in the morning.
[2017-07-24] MEDS: CEFTRIAXONE SODIUM 1,000 MG in DEXTROSE 5%-WATER 50 ML IV SCH (21:35)
[2017-07-25] MEDS: LANSOPRAZOLE 15 MG TAB.RAP.DR PO SCH (05:13)
[2017-07-25 05:45] LABS: INTERNATIONAL RATION (INR) 0.94
[2017-07-25 05:51] LABS: ABSOLUTE EOSINOPHILS # (AUTO) 0.2 10^3/uL (0.0-0.6); ABSOLUTE LYMPHOCYTES (AUTO) 0.8 10^3/uL (0.5-4.7); ABSOLUTE MONOCYTES (AUTO) 0.4 10^3/uL (0.1-1.4); ABSOLUTE NEUT (AUTO) 3.8 10^3/uL (1.7-8.2); BASOPHILS % (AUTO) 0.6 % (0-2); EOSINOPHILS % (AUTO) 3.1 % (0-6); HEMATOCRIT 36.8 % (36.0-47.0); HEMOGLOBIN 12.4 g/dL (12.0-15.5); MEAN CORPUSCULAR HEMOGLOBIN 32.5 pg (27.0-33.4); MEAN CORPUSCULAR HGB CONC 33.6 g/dL (32.0-36.0); MEAN CORPUSCULAR VOLUME 97 fl (80-97); MONOCYTES % (AUTO) 8.5 % (3-13); RED BLOOD COUNT 3.81 10^6/uL (3.72-5.28); RED CELL DISTRIBUTION WIDTH 14.2 % (11.5-14.0); SEGMENTED NEUTROPHILS % (AUTO) 72.8 % (42-78); TOTAL CELLS COUNTED % (AUTO) 100 %; WHITE BLOOD COUNT 5.3 10^3/uL (4.0-10.5)
[2017-07-25 05:59] LABS: ALANINE AMINOTRANSFERASE 116 U/L (9-52); ALBUMIN 4.4 g/dL (3.5-5.0); ALKALINE PHOSPHATASE 76 U/L (38-126); ANION GAP 13 (5-19); ASPARTATE AMINO TRANSFERASE 195 U/L (14-36); BILIRUBIN,DIRECT 0.4 mg/dL (0.0-0.4); BILIRUBIN,TOTAL 0.7 mg/dL (0.2-1.3); BLOOD UREA NITROGEN 10 mg/dL (7-20); CALCIUM 9.9 mg/dL (8.4-10.2); CARBON DIOXIDE 26 mmol/L (22-30); CHLORIDE 101 mmol/L (98-107); GLUCOSE 132 mg/dL (75-110); PHOSPHORUS 4.4 mg/dL (2.5-4.5); SODIUM 140.2 mmol/L (137-145); TOTAL PROTEIN 7.6 g/dL (6.3-8.2)
[2017-07-25 06:23] LABS: PLATELET COUNT 70 10^3/uL (150-450)
[2017-07-25] MEDS: NICOTINE 21 MG/24 HR PATCH.TD24 TD SCH (07:44)
--- NOTE | 2017-07-25 18:43 | PDOC PROGRESS REPORT ---
Subjective Progress Note for:: 07/25/17 Subjective:: Feeling much better. Would like to go home. No more seizure. Did not require Ativan overnight. No chest pain or shortness of breath, no palpitations. Patient states she is determined to stop drinking at this time. Reason For Visit: ALCOHOLIC SEIZURES Physical Exam Vital Signs: Temp Pulse Resp BP Pulse Ox 98.1 F 87 18 130/93 H 100 07/25/17 13:32 07/25/17 13:32 07/25/17 13:32 07/25/17 13:32 07/25/17 13:32 Intake & Output 07/24/17 07/25/17 07/26/17 06:59 06:59 06:59 Intake Total 5676 3526 10 Balance 5676 3526 10 Weight 54.7 kg 53.4 kg GEN: NAD, well-developed, well-nourished CV: RRR, NL S1S2 LUNGS: CTA bilaterally ABDOMEN Soft, NT, +BS EXTERMITIES: No e/c/c NEURO: Alert, oriented 3, nonfocal Results Laboratory Results: 07/25/17 05:12 07/25/17 05:12 07/25/17 07/25/17 07/25/17 05:12 05:12 05:12 WBC 5.3 RBC 3.81 Hgb 12.4 Hct 36.8 MCV 97 MCH 32.5 MCHC 33.6 RDW 14.2 H Plt Count 70 L Seg Neutrophils % 72.8 Lymphocytes % 15.0 Monocytes % 8.5 Eosinophils % 3.1 Basophils % 0.6 Absolute Neutrophils 3.8 Absolute Lymphocytes 0.8 Absolute Monocytes 0.4 Absolute Eosinophils 0.2 Absolute Basophils 0.0 Sodium 140.2 Potassium 4.0 Chloride 101 Carbon Dioxide 26 Anion Gap 13 BUN 10 Creatinine 0.52 Est GFR ( Amer) > 60 Est GFR (Non-Af Amer) > 60 Glucose 132 H Calcium 9.9 Phosphorus 4.4 Magnesium 1.7 Total Bilirubin 0.7 AST 195 H ALT 116 H Alkaline Phosphatase 76 Ammonia < 8.7 L Total Protein 7.6 Albumin 4.4 07/23/17 06:24 Creatine Kinase 765 H Impressions: Venous Doppler Study 07/22/17 00:00 IMPRESSION: NO EVIDENCE DVT OR SVT IN EITHER LEG. Head CT 07/22/17 14:49 IMPRESSION: NORMAL BRAIN CT WITHOUT CONTRAST. EVIDENCE OF ACUTE STROKE: NO. Facial Bones CT 07/22/17 14:50 IMPRESSION: NO ACUTE FINDINGS. Chest X-Ray 07/22/17 15:57 IMPRESSION: NO ACUTE RADIOGRAPHIC FINDING IN THE CHEST. Abdomen Ultrasound 07/23/17 00:00 IMPRESSION: No acute findings. Gallbladder sludge. Lumbar Spine MRI 07/24/17 00:00 IMPRESSION: Lower lumbar facet arthropathy. No significant central or foraminal encroachment. Assessment & Plan - Plan Summary Plan Summary: (1) Seizure due to alcohol withdrawal Is this a current diagnosis for this admission?: Yes Plan: The patient had a total of 3 seizures. These have resolved after being loaded with Keppra and receiving 2 doses of IV Ativan. She is now off Ativan and Keppra. Continue to monitor. (2) Alcohol withdrawal Is this a current diagnosis for this admission?: Yes Plan: Resolved. Stop her Ativan and and continue to monitor. (3) Alcohol abuse, continuous Is this a current diagnosis for this admission?: Yes Plan: The patient was on a slow weaning rehab protocol, and but is now quite motivated to stop drinking. (4) Urinary tract infection Is this a current diagnosis for this admission?: Yes Plan: She has gram-negative rods growing in her urine sensitive to Rocephin and cefuroxime, among others. Will discontinue IV Rocephin and stat cefuroxime 500 mg twice daily. This is day #3 of treatment. (5) Hyponatremia Is this a current diagnosis for this admission?: Yes Plan: Likely due to her underlying alcohol use. Improved. (6) Hypokalemia Is this a current diagnosis for this admission?: Yes Plan: Resolved. (7) Hypomagnesemia Is this a current diagnosis for this admission?: Yes Plan: Her level has normalized. We will continue her on p.o. magnesium supplementation. (8) Elevated transaminase level Is this a current diagnosis for this admission?: Yes Plan: Ultrasound of the liver was unremarkable. She did have some gallbladder sludge. This is likely due to mild alcoholic hepatitis. Liver function test unfortunately bumped up again today. We will continue to monitor, hence patient cannot be discharged today. (9) Rhabdomyolysis Is this a current diagnosis for this admission?: Yes Plan: Improving (10) Bilateral lower extremity pain Is this a current diagnosis for this admission?: Yes Plan: MRI revealed some degenerative changes but nothing acute. The issues with her lower extremities could be due to all of her electrolyte abnormalities and the states she was in when she came into the hospital. Her bilateral lower extremity pain is almost totally resolved. (11) Depression Is this a current diagnosis for this admission?: Yes Plan: She had an appointment with psychiatry today, but had to be changed due to abnormal LFTs. Hopefully she can see one in the next couple of days. (12) Tobacco abuse Is this a current diagnosis for this admission?: Yes Plan: She will continue nicotine patch
[2017-07-25] MEDS: LORAZEPAM 0.5 MG TABLET PO PRN (19:47)
[2017-07-25] MEDS ORDERED: CEFUROXIME 500 MG TABLET PO SCH (22:00)
[2017-07-26] MEDS: LANSOPRAZOLE 15 MG TAB.RAP.DR PO SCH (05:18)
[2017-07-26] MEDS: LORAZEPAM 0.5 MG TABLET PO PRN ×2 (05:22→14:06)
[2017-07-26] MEDS ORDERED: ACETAMINOPHEN 325 MG TABLET PO PRN (05:42)
[2017-07-26 06:48] LABS: ABSOLUTE BASOPHILS # (AUTO) 0.1 10^3/uL (0.0-0.2); ABSOLUTE EOSINOPHILS # (AUTO) 0.1 10^3/uL (0.0-0.6); ABSOLUTE LYMPHOCYTES (AUTO) 0.9 10^3/uL (0.5-4.7); ABSOLUTE MONOCYTES (AUTO) 0.7 10^3/uL (0.1-1.4); BASOPHILS % (AUTO) 1.1 % (0-2); EOSINOPHILS % (AUTO) 2.4 % (0-6); HEMOGLOBIN 12.9 g/dL (12.0-15.5); MEAN CORPUSCULAR HEMOGLOBIN 32.2 pg (27.0-33.4); MEAN CORPUSCULAR HGB CONC 33.9 g/dL (32.0-36.0); MEAN CORPUSCULAR VOLUME 95 fl (80-97); MONOCYTES % (AUTO) 14.7 % (3-13); RED CELL DISTRIBUTION WIDTH 14.9 % (11.5-14.0); SEGMENTED NEUTROPHILS % (AUTO) 63.8 % (42-78); TOTAL CELLS COUNTED % (AUTO) 100 %; WHITE BLOOD COUNT 4.7 10^3/uL (4.0-10.5)
[2017-07-26 06:53] LABS: PLATELET COUNT 81 10^3/uL (150-450)
[2017-07-26 06:55] LABS: ALANINE AMINOTRANSFERASE 183 U/L (9-52); ALBUMIN 4.7 g/dL (3.5-5.0); ALKALINE PHOSPHATASE 83 U/L (38-126); ANION GAP 13 (5-19); ASPARTATE AMINO TRANSFERASE 296 U/L (14-36); BILIRUBIN,DIRECT 0.4 mg/dL (0.0-0.4); BLOOD UREA NITROGEN 5 mg/dL (7-20); CALCIUM 10.2 mg/dL (8.4-10.2); CARBON DIOXIDE 27 mmol/L (22-30); CHLORIDE 101 mmol/L (98-107); CREATINE KINASE 879 U/L (30-135); GLUCOSE 90 mg/dL (75-110); POTASSIUM 3.6 mmol/L (3.6-5.0); SODIUM 140.9 mmol/L (137-145); TOTAL PROTEIN 7.9 g/dL (6.3-8.2)
[2017-07-26] MEDS: NICOTINE 21 MG/24 HR PATCH.TD24 TD SCH (09:16)
--- NOTE | 2017-07-26 16:03 | PDOC PROGRESS REPORT ---
Subjective Progress Note for:: 07/26/17 Subjective:: Continues feeling much better. Remains seizure-free. No chest pain or shortness of breath, no palpitations. No headaches, no nausea or vomiting. Patient continues to state she is determined to stop drinking at this time. Reason For Visit: ALCOHOLIC SEIZURES Physical Exam Vital Signs: Temp Pulse Resp BP Pulse Ox 98.1 F 87 19 121/97 H 100 07/26/17 12:18 07/26/17 12:18 07/26/17 12:18 07/26/17 12:18 07/26/17 12:18 Intake & Output 07/25/17 07/26/17 07/27/17 06:59 06:59 06:59 Intake Total 3526 5115 236 Balance 3526 5115 236 Weight 53.4 kg 51.1 kg GEN: NAD, well-developed, well-nourished HEENT: No jaundice CV: RRR, NL S1S2 LUNGS: CTA bilaterally ABDOMEN Soft, NT, +BS EXTERMITIES: No e/c/c NEURO: Alert, oriented 3, nonfocal Skin: No jaundice Results Laboratory Results: 07/26/17 06:18 07/26/17 06:18 07/26/17 07/26/17 06:18 06:18 WBC 4.7 RBC 4.00 Hgb 12.9 Hct 38.0 MCV 95 MCH 32.2 MCHC 33.9 RDW 14.9 H Plt Count 81 L Seg Neutrophils % 63.8 Lymphocytes % 18.0 Monocytes % 14.7 H Eosinophils % 2.4 Basophils % 1.1 Absolute Neutrophils 3.0 Absolute Lymphocytes 0.9 Absolute Monocytes 0.7 Absolute Eosinophils 0.1 Absolute Basophils 0.1 Sodium 140.9 Potassium 3.6 Chloride 101 Carbon Dioxide 27 Anion Gap 13 BUN 5 L Creatinine 0.48 L Est GFR ( Amer) > 60 Est GFR (Non-Af Amer) > 60 Glucose 90 Calcium 10.2 Magnesium 1.7 Total Bilirubin 1.0 AST 296 H ALT 183 H Alkaline Phosphatase 83 Total Protein 7.9 Albumin 4.7 07/23/17 07/26/17 06:24 06:18 Creatine Kinase 765 H 879 H Impressions: Venous Doppler Study 07/22/17 00:00 IMPRESSION: NO EVIDENCE DVT OR SVT IN EITHER LEG. Head CT 07/22/17 14:49 IMPRESSION: NORMAL BRAIN CT WITHOUT CONTRAST. EVIDENCE OF ACUTE STROKE: NO. Facial Bones CT 07/22/17 14:50 IMPRESSION: NO ACUTE FINDINGS. Chest X-Ray 07/22/17 15:57 IMPRESSION: NO ACUTE RADIOGRAPHIC FINDING IN THE CHEST. Abdomen Ultrasound 07/23/17 00:00 IMPRESSION: No acute findings. Gallbladder sludge. Lumbar Spine MRI 07/24/17 00:00 IMPRESSION: Lower lumbar facet arthropathy. No significant central or foraminal encroachment. Assessment & Plan - Plan Summary Plan Summary: (1) Seizure due to alcohol withdrawal Is this a current diagnosis for this admission?: Yes Plan: The patient had a total of 3 seizures. These have resolved after being loaded with Keppra and receiving 2 doses of IV Ativan. She is now off Keppra, will keep off given worsening LFTs and patient with no recurrent seizures. We will continue to monitor and treat with as needed Ativan if recurrent seizure. (2) Alcohol withdrawal Is this a current diagnosis for this admission?: Yes Plan: Resolved. Continue to monitor. (3) Alcohol abuse, continuous Is this a current diagnosis for this admission?: Yes Plan: The patient was on a slow weaning rehab protocol, and but is now quite motivated to stop drinking. (4) Urinary tract infection Is this a current diagnosis for this admission?: Yes Plan: She has gram-negative rods growing in her urine sensitive to Rocephin and cefuroxime, among others. Will discontinue antibiotics as he has completed 3 days of treatment, and given worsening LFTs, we are trying to minimize what medication she gets. (5) Hyponatremia Is this a current diagnosis for this admission?: Yes Plan: Likely due to her underlying alcohol use. Improved. (6) Hypokalemia Is this a current diagnosis for this admission?: Yes Plan: Resolved. (7) Hypomagnesemia Is this a current diagnosis for this admission?: Yes Plan: Her level has normalized. We will continue her on p.o. magnesium supplementation for now. (8) Elevated transaminase level Is this a current diagnosis for this admission?: Yes Plan: Ultrasound of the liver was unremarkable. Viral hepatitis panel negative. She did have some gallbladder sludge on ultrasound. This is likely due to mild alcoholic hepatitis. Liver function test unfortunately bumped up again today. We will continue to monitor, and patient is agreeable to remaining in the hospital. (9) Rhabdomyolysis Is this a current diagnosis for this admission?: Yes Plan: Improving (10) Bilateral lower extremity pain Is this a current diagnosis for this admission?: Yes Plan: MRI revealed some degenerative changes but nothing acute. The issues with her lower extremities could be due to all of her electrolyte abnormalities and the states she was in when she came into the hospital. Her bilateral lower extremity pain is almost totally resolved. (11) Depression Is this a current diagnosis for this admission?: Yes Plan: She had an appointment with psychiatry 07/25/17, but had to be changed due to abnormal LFTs. She plans to see one in the next few days after discharge. (12) Tobacco abuse Is this a current diagnosis for this admission?: Yes Plan: She will continue nicotine patch
[2017-07-26] MEDS: IBUPROFEN 400 MG TABLET PO PRN (20:22)
[2017-07-27] MEDS: LANSOPRAZOLE 15 MG TAB.RAP.DR PO SCH (05:34)
[2017-07-27] MEDS: IBUPROFEN 400 MG TABLET PO PRN (05:34)
[2017-07-27 05:55] LABS: HEMATOCRIT 37.2 % (36.0-47.0); HEMOGLOBIN 12.5 g/dL (12.0-15.5); MEAN CORPUSCULAR HEMOGLOBIN 32.3 pg (27.0-33.4); MEAN CORPUSCULAR HGB CONC 33.6 g/dL (32.0-36.0); MEAN CORPUSCULAR VOLUME 96 fl (80-97); PLATELET COUNT 110 10^3/uL (150-450); RED BLOOD COUNT 3.87 10^6/uL (3.72-5.28); WHITE BLOOD COUNT 4.4 10^3/uL (4.0-10.5)
[2017-07-27 06:17] LABS: ALANINE AMINOTRANSFERASE 215 U/L (9-52); ALBUMIN 4.5 g/dL (3.5-5.0); ALKALINE PHOSPHATASE 78 U/L (38-126); ANION GAP 13 (5-19); ASPARTATE AMINO TRANSFERASE 263 U/L (14-36); BILIRUBIN,DIRECT 0.5 mg/dL (0.0-0.4); BLOOD UREA NITROGEN 5 mg/dL (7-20); CARBON DIOXIDE 27 mmol/L (22-30); CHLORIDE 103 mmol/L (98-107); GLUCOSE 89 mg/dL (75-110); POTASSIUM 3.7 mmol/L (3.6-5.0); SODIUM 142.7 mmol/L (137-145); TOTAL PROTEIN 7.7 g/dL (6.3-8.2)
[2017-07-27 06:44] LABS: ABSOLUTE LYMPHOCYTES# (MANUAL) 0.7 10^3/uL (0.5-4.7); ABSOLUTE NEUTROPHILS# (MANUAL) 2.5 10^3/uL (1.7-8.2); BASOPHILS % (MANUAL) 2 % (0-2); EOSINOPHILS % (MANUAL) 3 % (0-6); LYMPHOCYTES % (MANUAL) 17 % (13-45); MONOCYTES % (MANUAL) 22 % (3-13); SEGMENTED NEUTROPHILS % (MAN) 56 % (42-78); TOTAL CELLS COUNTED 100
[2017-07-27 06:45] LABS: ANISOCYTOSIS SLIGHT; PLATELET COMMENT ADEQUATE; SCHISTOCYTES SLIGHT; TOXIC GRANULATION SLIGHT
[2017-07-27 09:18] VITALS: BP 120/79
--- NOTE | 2017-07-27 14:09 | PDOC DISCHARGE SUMMARY ---
General - Admit/Disc Date/PCP Admission Date/Primary Care Provider: 07/22/17 16:57 Discharge Date: 07/27/17 - Additional Information Resuscitation Status: Full Code Home Medications: Vit/Iron Fum/Folic AC [ Tablet] 1 tab PO DAILY 07/22/17 History of Present Illness History of Present Illness: NADINE GEORGE is a 31 year old female admitted after presenting to the ED as in HPI below: "NADINE GEORGE is a 31 year old female who presented to the emergency room after having a seizure at home. She has a past medical history significant for alcohol abuse. She has tried to stop drinking before but always goes through alcohol withdrawal. She has never been completely detoxed. She was hospitalized last week at and was started on an alcohol protocol with Librium. She checked herself out of the hospital AMA 2 days later. The patient is enrolled in an outpatient program that slowly weaned to off of alcohol over a 12 week. She is at week 3 of the program and still is allowed to drink. She states that yesterday she drank quite heavily and was still drunk this morning when she got up. When she began to sober up she suffered a seizure and was brought to the emergency room for further evaluation. Upon arrival in the [emergency] room she had 2 additional seizures. She has been loaded with Keppra and has received IV Ativan." Hospital Course Hospital Course: Patient was admitted to hospitalist service and treated with Ativan IV. She was also treated with Keppra. Seizures resolved and she was transitioned to as needed Ativan p.o. She has now been seizure free for at least 72 hours. Unfortunately, patient had alcohol hepatitis with markedly elevated liver function tests. Her LFTs were trended. Although they began to improve initially, but they trended back up with AST peaking yesterday at 296 and ALT was 183. Bilirubin and PT/INR are normal. All of the patient's medications were stopped, including cephalosporins for UTI and patient's Keppra had been stopped the day before. Of note is that abdominal ultrasound was unremarkable except for some gallbladder sludge, and blood tests for viral hepatitis was negative for hepatitis A, B, and C. Today, AST has seemed to begin to improve with value of 263, but unfortunately AST is continuing to worsen at 215. I discussed with patient and her mother, who was at bedside, the need for patient to remain in the hospital, but patient stated that she has stayed long enough. She was tired of remaining in the hospital. She signed out AMA. She stated she will go to her PCP in 2 days, after the iday tomorrow, and have them recheck her LFTs. Risk and benefits of leaving AGAINST MEDICAL ADVICE, including fulminant liver failure and , explained to patient in the presence of her mother, and she verbalized understanding. Hospital course also significant for patient noted to have UTI. She will grew E. coli sensitive to cephalosporins and she received 3 days dose of Rocephin prior to admission. Patient no longer symptomatic, no dysuria or urinary frequency, no fever or chills. Again she signed out AGAINST MEDICAL ADVICE before elevated LFTs could show improvements. She will follow-up with her PCP JACEY. Physical Exam Vital Signs: Temp Pulse Resp BP Pulse Ox 98.8 F 103 H 16 120/79 100 07/27/17 09:17 07/27/17 09:17 07/27/17 09:17 07/27/17 09:17 07/27/17 09:17 Intake & Output 07/26/17 07/27/17 07/28/17 06:59 06:59 06:59 Intake Total 5115 3276 Balance 5115 3276 Weight 51.1 kg 52.4 kg GEN: NAD, well-developed, well-nourished HEENT: No jaundice CV: RRR, NL S1S2 LUNGS: CTA bilaterally ABDOMEN Soft, NT, +BS EXTERMITIES: No e/c/c NEURO: Alert, oriented 3, nonfocal Skin: No jaundice Results Laboratory Results: 07/27/17 05:06 07/27/17 05:06 07/27/17 07/27/17 05:06 05:06 WBC 4.4 RBC 3.87 Hgb 12.5 Hct 37.2 MCV 96 MCH 32.3 MCHC 33.6 RDW 15.0 H Plt Count 110 L Seg Neutrophils % Not Reportable Lymphocytes % Not Reportable Monocytes % Not Reportable Eosinophils % Not Reportable Basophils % Not Reportable Absolute Neutrophils Not Reportable Absolute Lymphocytes Not Reportable Absolute Monocytes Not Reportable Absolute Eosinophils Not Reportable Absolute Basophils Not Reportable Sodium 142.7 Potassium 3.7 Chloride 103 Carbon Dioxide 27 Anion Gap 13 BUN 5 L Creatinine 0.64 Est GFR ( Amer) > 60 Est GFR (Non-Af Amer) > 60 Glucose 89 Calcium 10.0 Total Bilirubin 1.0 AST 263 H ALT 215 H Alkaline Phosphatase 78 Total Protein 7.7 Albumin 4.5 07/23/17 07/26/17 06:24 06:18 Creatine Kinase 765 H 879 H Impressions: Venous Doppler Study 07/22/17 00:00 IMPRESSION: NO EVIDENCE DVT OR SVT IN EITHER LEG. Head CT 07/22/17 14:49 IMPRESSION: NORMAL BRAIN CT WITHOUT CONTRAST. EVIDENCE OF ACUTE STROKE: NO. Facial Bones CT 07/22/17 14:50 IMPRESSION: NO ACUTE FINDINGS. Chest X-Ray 07/22/17 15:57 IMPRESSION: NO ACUTE RADIOGRAPHIC FINDING IN THE CHEST. Abdomen Ultrasound 07/23/17 00:00 IMPRESSION: No acute findings. Gallbladder sludge. Lumbar Spine MRI 07/24/17 00:00 IMPRESSION: Lower lumbar facet arthropathy. No significant central or foraminal encroachment. Qualifiers - * PATIENT BEING DISCHARGED WITH ANY OF THE FOLLOWING DIAGNOSIS: No
== END 2017-07-27 09:51 | disposition left against medical advice (07) | DRG 894 ==
LOC: ER 14:08 → EH 16:57 → 3W 20:44
PROVIDERS: ADMIT Internal Medicine; ATTEND Internal Medicine
DX: F10.239 Alcohol dependence with withdrawal, unspecified (principal); G40.509 Epileptic seizures related to external causes, not intractable, without status epilepticus; M62.82 Rhabdomyolysis; N39.0 Urinary tract infection, site not specified; K70.10 Alcoholic hepatitis without ascites; B96.20 Unspecified Escherichia coli [E. coli] as the cause of diseases classified elsewhere; F17.200 Nicotine dependence, unspecified, uncomplicated; K83.9 Disease of biliary tract, unspecified; F32.9 Major depressive disorder, single episode, unspecified; R20.0 Anesthesia of skin; R29.6 Repeated falls; E87.6 Hypokalemia; R74.0 Nonspecific elevation of levels of transaminase and lactic acid dehydrogenase [LDH]; E83.42 Hypomagnesemia; Z63.72 Alcoholism and drug addiction in family; Z63.5 Disruption of family by separation and divorce
CPT/HCPCS: 36415; 70450; 70486; 71045; 72148; 76705; 80048; 80053; 80074; 80076; 80307; 81001; 82140; 82550; 82553; 83735; 84100; 84443; 84484; 84703; 85025; 85610; 85730; 87086; 87088; 87186; 93005; 93010; 93970; 96365; 96375; 99285; J0696; J1953; J2060; J3411; J3475; J3480; J3490; J7050